=== PATIENT | female | born 1980 | race Caucasian/White ===

== ENCOUNTER 2022-06-09 11:36 | Inpatient (IN) | payer OTHER ==
[~2022-06-09] VITALS: Ht 157.5 cm; Wt 85.3 kg
[2022-06-09] MEDS ORDERED: TERBUTALINE SULFATE 1 MG/ML VIAL SUBCUT PRN (12:00)
[2022-06-09 12:30] LABS: BARBITURATE, URINE NEGATIVE (NEG <=200); BENZODIAZEPINE, URINE NEGATIVE (NEG <=150); CANNABINOID, URINE POSITIVE (NEG <=50); COCAINE, URINE NEGATIVE (NEG <=150); METHAMPHETAMINES SCREEN,URINE POSITIVE (NEG <=500); OPIATE, URINE NEGATIVE (NEG <=100); PHENCYCLIDINE SCREEN,URINE NEGATIVE (NEG <=25); UR TRICYCLIC ANTIDEPRESSANTS NEGATIVE (NEG <=300); URINE AMPHETAMINE POSITIVE (NEG <=500); URINE METHADONE NEGATIVE (NEG <=200); URINE OXYCODONE SCREEN NEGATIVE (NEG <=100); URINE PROPOXYPHENE SCREEN NEGATIVE (NEG <=300)
[2022-06-09 12:37] LABS: BILIRUBIN,URINE NEGATIVE (NEGATIVE); COLOR,URINE YELLOW (YELLOW); GLUCOSE,URINE NEGATIVE (NEGATIVE); KETONES,URINE NEGATIVE (NEGATIVE); LEUKOCYTE ESTERASE ,URINE NEGATIVE (NEGATIVE); NITRITE, URINE NEGATIVE (NEGATIVE); PH,URINE 6.5 (5.0-8.0); PROTEIN URINE 3+ (NEGATIVE); UROBILINOGEN,URINE 0.2 (0.2-1.0)
[2022-06-09 12:41] LABS: BLOOD, URINE TRACE (NEGATIVE)
[2022-06-09 12:45] LABS: BACTERIA,URINE MANY /HPF (None Seen); CLARITY/URINE HAZY (CLEAR); MUCUS,URINE 1+ /LPF (None Seen)
[2022-06-09] MEDS ORDERED: NALBUPHINE HCL 10 MG/ML AMP IVP PRN (13:15)
[2022-06-09] MEDS ORDERED: TERBUTALINE SULFATE 1 MG/ML VIAL SUBCUT ONE (13:15)
[2022-06-09] MEDS ORDERED: OXYTOCIN/0.9 % SODIUM CHLORIDE 1,000 ML IV SCH (13:15)
[2022-06-09] MEDS ORDERED: LR 1,000 ML IV ONE (13:15)
[2022-06-09 13:34] LABS: BASOPHILS % (AUTO) 0.4 % (0.0-2.0); EOSINOPHILS # (AUTO) 0.1 K/uL (0.0-0.4); EOSINOPHILS % (AUTO) 0.8 % (0.0-4.0); HEMATOCRIT 39.7 % (36-48); HEMOGLOBIN 14.1 g/dL (12.0-16.0); LYMPHOCYTES # (AUTO) 1.6 K/uL (1.0-5.5); LYMPHOCYTES % (AUTO) 15.4 % (20.5-51.5); MEAN CORPUSCULAR HEMOGLOBIN 31 pg (27-31); MEAN CORPUSCULAR HGB CONC 36 % (32-36); MEAN CORPUSCULAR VOLUME 88 fL (79.0-98.0); MONOCYTES # (AUTO) 0.7 K/uL (0.0-1.0); NEUTROPHILS # (AUTO) 7.7 K/uL (1.8-7.7); NEUTROPHILS % (AUTO) 76.4 % (40.0-70.0); PLATELET COUNT (AUTO) 120 K/uL (130-430); RED CELL DISTRIBUTION WIDTH 13.1 % (9.0-15.0); WHITE BLOOD COUNT (AUTO) 10.1 K/uL (4.8-10.8)
[2022-06-09 13:52] LABS: CALCIUM 8.3 mg/dL (8.4-11.0); CREATININE 0.56 mg/dL (0.55-1.30); POTASSIUM 4.1 mmol/L (3.5-5.1)
[2022-06-09 13:57] LABS: ALBUMIN 1.9 g/dL (3.4-4.8); TOTAL BILIRUBIN 0.3 mg/dL (0.0-1.0)
[2022-06-09 14:17] LABS: INR 0.8 (0.8-1.2); PROTHROMBIN TIME 8.9 SECS (9.5-12.5)
[2022-06-09] MEDS: hydrALAZINE HCL 20 MG/ML VIAL IVP PRN ×2 (15:17→15:55)
[2022-06-09] MEDS ORDERED: hydrALAZINE HCL 25 MG TABLET PO ONE (16:15)
[2022-06-09 17:20] VITALS: BP_SYST 193
[2022-06-09] MEDS ORDERED: LABETALOL HCL 20 MG/4 ML CARTRIDGE IVP ONE (18:45)
[2022-06-09] MEDS ORDERED: LABETALOL 100 MG/ 20ML VIAL ONE (19:10)
[2022-06-09] MEDS ORDERED: fentaNYL CITRATE/PF 100 MCG/2 ML AMP ONE (21:46)
[2022-06-09] MEDS ORDERED: ROPIVACAINE HCL/PF 0.2% 200 ML ONE (21:46)
[2022-06-09] MEDS ORDERED: LR 500 ML IV ONE (22:45)
[2022-06-09] MEDS ORDERED: FENT2mCg/mL-ROPIVA0.2%/NS EPID 200 ML EP SCH (22:45)
[2022-06-10 00:27] LABS: BILIRUBIN,URINE NEGATIVE (NEGATIVE); BLOOD, URINE NEGATIVE (NEGATIVE); CLARITY/URINE CLEAR (CLEAR); COLOR,URINE BROWN (YELLOW); GLUCOSE,URINE NEGATIVE (NEGATIVE); KETONES,URINE 3+ (NEGATIVE); LEUKOCYTE ESTERASE ,URINE NEGATIVE (NEGATIVE); NITRITE, URINE NEGATIVE (NEGATIVE); PH,URINE 6.5 (5.0-8.0); PROTEIN URINE 3+ (NEGATIVE); UROBILINOGEN,URINE 0.2 (0.2-1.0)
[2022-06-10 00:38] LABS: CANNABINOID, URINE POSITIVE (NEG <=50)
[2022-06-10 00:39] LABS: BARBITURATE, URINE NEGATIVE (NEG <=200); BENZODIAZEPINE, URINE NEGATIVE (NEG <=150); COCAINE, URINE NEGATIVE (NEG <=150); METHAMPHETAMINES SCREEN,URINE POSITIVE (NEG <=500); OPIATE, URINE NEGATIVE (NEG <=100); PHENCYCLIDINE SCREEN,URINE NEGATIVE (NEG <=25); UR TRICYCLIC ANTIDEPRESSANTS NEGATIVE (NEG <=300); URINE METHADONE NEGATIVE (NEG <=200); URINE OXYCODONE SCREEN NEGATIVE (NEG <=100); URINE PROPOXYPHENE SCREEN NEGATIVE (NEG <=300)
[2022-06-10 01:00] LABS: URINE AMPHETAMINE POSITIVE (NEG <=500)
[2022-06-10] MEDS ORDERED: OXYTOCIN/0.9 % SODIUM CHLORIDE 1,000 ML IV SCH ×2 (06:00→21:00)
[2022-06-10] MEDS: ONDANSETRON HCL 4 MG/2 ML VIAL IVP PRN ×2 (06:16→08:32)
[2022-06-10] MEDS: LR 1,000 ML IV SCH ×3 (06:18→13:47)
[2022-06-10] MEDS ORDERED: LABETALOL 100 MG/ 20ML VIAL IVP ONE (14:30)
[2022-06-10] MEDS ORDERED: CEFAZOLIN 2 GM IVPB PREMIX 50 ML IV ONE (20:00)
[2022-06-10] MEDS ORDERED: BUPIVACAINE /PF 0.5% 30 ML VIAL ONE (20:21)
[2022-06-10] MEDS ORDERED: MORPHINE SULFATE 10 MG/ML VIAL ONE (20:45)
[2022-06-10] MEDS ORDERED: LR 1,000 ML IV.SOLN IV ONE (20:45)
[2022-06-10] MEDS ORDERED: NS IRRIG SOLN 1000 ML IR ONE (20:45)
[2022-06-10] MEDS ORDERED: ONDANSETRON HCL 4 MG/2 ML VIAL ONE (20:45)
[2022-06-10] MEDS ORDERED: LANOLIN 7 GM OINT. TP PRN (21:00)
[2022-06-10] MEDS ORDERED: OXYCODONE/ACETAMINOPHEN 5-325 TABLET PO PRN (21:00)
[2022-06-10] MEDS ORDERED: SENNOSIDES/DOCUSATE SODIUM 1 TAB TABLET(SENOKOT-S) PO SCH (21:00)
[2022-06-10] MEDS ORDERED: NALBUPHINE HCL 10 MG/ML AMP IVP PRN (21:00)
[2022-06-10] MEDS ORDERED: fentaNYL CITRATE/PF 100 MCG/2 ML AMP IVP PRN ×2 (21:00)
[2022-06-10] MEDS ORDERED: ONDANSETRON HCL 4 MG/2 ML VIAL IVP PRN ×2 (21:00)
[2022-06-10] MEDS ORDERED: METOCLOPRAMIDE HCL 10 MG/2 ML VIAL IVP PRN (21:00)
[2022-06-10] MEDS ORDERED: DIPHTH,PERTUSS(ACELL),TET VAC 0.5 ML VIAL (Tdap) I.M. PRN (21:00)
[2022-06-10] MEDS ORDERED: TEMAZEPAM 15 MG CAPSULE PO PRN (21:00)
[2022-06-10] MEDS ORDERED: MEASLES,MUMPS&RUBELLA VACC/PF 12500 UNIT/0.5 ML VIAL SUBQ PRN (21:00)
[2022-06-10] MEDS ORDERED: ANUSOL 1 EA SUPP.RECT (PREPARATION H) RC PRN (21:00)
[2022-06-10] MEDS ORDERED: MORPHINE SULFATE 10MG/10ML PF AMP EP SCH (21:00)
[2022-06-10] MEDS ORDERED: NALOXONE HCL 0.4 MG/ML AMP (NARCAN) IVP PRN ×3 (21:00)
[2022-06-10] MEDS ORDERED: LR 1,000 ML IV SCH (21:00)
[2022-06-10] MEDS ORDERED: RHO(D) IMMUNE GLOBULIN/MALTOSE 1500 UNITS/1.3 ML (WINHRO) IM PRN (21:00)
[2022-06-10] MEDS ORDERED: DIPHENHYDRAMINE INJ 50 MG/ML VIAL IVP PRN (21:00)
[2022-06-10] MEDS ORDERED: HYDROcodone/ACETAMIN 5-325 MG TAB (NORCO/ VICODIN) PO PRN (21:00)
[2022-06-10] MEDS ORDERED: BISACODYL 10 MG/SUPPOSITORY RC PRN (21:00)
[2022-06-10] MEDS ORDERED: OXYCODONE/ACETAMINOPHEN *10*mg/325 mg TABLET PO PRN (21:00)
[2022-06-10 21:30] VITALS: BP_SYST 134
[2022-06-10] MEDS ORDERED: OXYTOCIN 10 UNIT/ML VIAL ONE (21:37)
[2022-06-11] MEDS: KETOROLAC TROMETHAMINE 60 MG/2 ML VIAL IM PRN ×2 (00:08→18:03)
[2022-06-11] MEDS: CEFAZOLIN 1 GM IVPB PREMIX 50 ML IV SCH ×3 (02:36→14:20)
[2022-06-11] MEDS ORDERED: ACETAMINOPHEN I.V. 1000 MG 100 ML IV ONE (02:48)
[2022-06-11] MEDS ORDERED: KETOROLAC TROMETHAMINE 30 MG VIAL IVP SCH (06:00)
[2022-06-11 07:09] LABS: BASOPHILS # (AUTO) 0.1 K/uL (0.0-0.2); BASOPHILS % (AUTO) 0.6 % (0.0-2.0); EOSINOPHILS # (AUTO) 0.1 K/uL (0.0-0.4); EOSINOPHILS % (AUTO) 0.7 % (0.0-4.0); HEMATOCRIT 32.3 % (36-48); HEMOGLOBIN 11.6 g/dL (12.0-16.0); LYMPHOCYTES # (AUTO) 1.5 K/uL (1.0-5.5); LYMPHOCYTES % (AUTO) 14.1 % (20.5-51.5); MEAN CORPUSCULAR HEMOGLOBIN 32 pg (27-31); MEAN CORPUSCULAR HGB CONC 36 % (32-36); MEAN CORPUSCULAR VOLUME 89 fL (79.0-98.0); MONOCYTES # (AUTO) 0.7 K/uL (0.0-1.0); MONOCYTES % (AUTO) 6.5 % (1.7-9.3); NEUTROPHILS # (AUTO) 8.2 K/uL (1.8-7.7); NEUTROPHILS % (AUTO) 78.1 % (40.0-70.0); PLATELET COUNT (AUTO) 132 K/uL (130-430); RED BLOOD CELL COUNT(AUTO) 3.63 MIL/uL (4.2-6.2); RED CELL DISTRIBUTION WIDTH 13.3 % (9.0-15.0); WHITE BLOOD COUNT (AUTO) 10.5 K/uL (4.8-10.8)
[2022-06-11] MEDS: ACETAMINOPHEN I.V. 1000 MG 100 ML IV SCH ×2 (07:54→14:05)
[2022-06-11] MEDS: ONDANSETRON HCL 4 MG/2 ML VIAL IVP PRN (15:00)
[2022-06-11] MEDS: DOCUSATE SODIUM 100 MG CAPSULE PO SCH ×2 (18:00→18:02)
[2022-06-11] MEDS: SIMETHICONE 80 MG TAB.CHEW PO PRN (18:01)
[2022-06-11] MEDS ORDERED: FUROSEMIDE 40 MG/4 ML VIAL IVP ONE (18:45)
[2022-06-11] MEDS ORDERED: FUROSEMIDE 20 MG/2 ML VIAL ONE (19:53)
[2022-06-12] MEDS: IBUPROFEN 600 MG TABLET PO SCH ×4 (00:02→17:49)
[2022-06-12] MEDS: DOCUSATE SODIUM 100 MG CAPSULE PO SCH ×2 (09:42→20:16)
[2022-06-12] MEDS: SIMETHICONE 80 MG TAB.CHEW PO PRN ×2 (09:42→17:49)
[2022-06-13] MEDS: SIMETHICONE 80 MG TAB.CHEW PO PRN ×3 (00:01→09:42)
[2022-06-13] MEDS: IBUPROFEN 600 MG TABLET PO SCH ×2 (00:01→11:41)
[2022-06-13] MEDS: DOCUSATE SODIUM 100 MG CAPSULE PO SCH (09:42)
[2022-06-14 11:57] LABS: FTA-Ab (T PALLIDUM) Reactive (Non Reactive)
== END 2022-06-13 12:46 | disposition home or self-care (01) | DRG 787 ==
LOC: OBSVTOIN 11:36 → SPU 11:36
PROVIDERS: ADMIT Specialist; ATTEND Specialist
PROC: 10D00Z1 Extraction of Products of Conception, Low, Open Approach (ICD-10-PCS; principal; 2022-06-10 20:50)
DX: O13.4 Gestational [pregnancy-induced] hypertension without significant proteinuria, complicating childbirth (principal); O41.03X0 Oligohydramnios, third trimester, not applicable or unspecified; O62.2 Other uterine inertia; O76 Abnormality in fetal heart rate and rhythm complicating labor and delivery; O12.14 Gestational proteinuria, complicating childbirth; Z20.822 Contact with and (suspected) exposure to COVID-19; Z37.0 Single live birth; Z3A.37 37 weeks gestation of pregnancy
CPT/HCPCS: 36415; 80053; 80307; 81000; 81002; 81003; 85025; 85384; 85610-TC; 85730-TC; 86592; 86780; 86886; 86900; 86901; 94760; J0131; J0360; J0690; J1885; J1940; J2270; J2300; J2405; J2590; J3010; J3490; J7120

== ENCOUNTER 2022-06-15 09:33 | Inpatient (IN) | payer MEDICAID, OTHER ==
[~2022-06-15] VITALS: Ht 157.5 cm; Wt 85.3 kg
[2022-06-15 09:33] VITALS: BP_SYST 182
--- NOTE | 2022-06-15 09:33 | NUR ---
BROUGHT BACK TO BED #1 VIA WHEELCHAIR, PLACED IN BED #1 AND TRIAGED. REPORT GIVEN TO ROYAL
--- NOTE | 2022-06-15 09:33 | NUR ---
RECEIVED PT FROM ABHIJIT FARIAS. PT HAS SOB AND STATES SHE FEELS LIKE HER B/P IS HIGH AND SHE HAS ANXIETY. PT IS S/P < ONE WEEK, SURCIAL SITE CDI, NO S/S OF INFECTION NOTED. PT B/P 18R/98 (128). PT HAS BLE NONPITTING EDEMA, DISTAL PULSES NORMAL. SIDERAILS UP X2.
[2022-06-15] MEDS ORDERED: LORazepam 2 MG/ML VIAL IVP ONE (10:00)
[2022-06-15 10:18] LABS: MEAN CORPUSCULAR HEMOGLOBIN 32 pg (27-31); MEAN CORPUSCULAR HGB CONC 34 % (32-36); MEAN CORPUSCULAR VOLUME 93 fL (79.0-98.0); PLATELET COUNT (AUTO) 226 K/uL (130-430); RED CELL DISTRIBUTION WIDTH 13.6 % (9.0-15.0); WHITE BLOOD COUNT (AUTO) 13.1 K/uL (4.8-10.8)
[2022-06-15] MEDS ORDERED: IOHEXOL 350 mgI/mL, 150 ML INFUS..BTL IV ONE (10:23)
[2022-06-15 10:27] LABS: ANION GAP 5 (5-15); CALCIUM 7.9 mg/dL (8.4-11.0); CHLORIDE 105 mmol/L (98-107); CREATININE 0.63 mg/dL (0.55-1.30); GLUCOSE 99 mg/dL (70-99); POTASSIUM 4.2 mmol/L (3.5-5.1); UREA NITROGEN, BLOOD 13 mg/dL (8-21)
[2022-06-15 10:38] LABS: ALANINE AMINOTRANSFERASE 29 U/L (12-78); ALBUMIN 1.8 g/dL (3.4-4.8); ASPARTATE AMINOTRANSFERASE 57 U/L (10-37); TOTAL BILIRUBIN 1.4 mg/dL (0.0-1.0)
[2022-06-15 10:42] LABS: GFR AFRICAN AMERICAN 134 mL/min (>90)
--- NOTE | 2022-06-15 10:43 | NUR ---
CONSENT OBTAINED FOR C/T CONTRAST, ATIVVAN IVP GIVEN.
--- NOTE | 2022-06-15 10:44 | NUR ---
LAB REPORTS HGB 5.5. PT'S HGB ONE WEEK AGO WAS > 11. REQUESTED REDRAW, LAB AT BEDSIDE FOR REDRAW AT THIS TIME.
[2022-06-15 10:53] LABS: RED BLOOD CELL COUNT(AUTO) 1.76 MIL/uL (4.2-6.2)
[2022-06-15 10:54] LABS: HEMATOCRIT 16.3 % (36-48); HEMOGLOBIN 5.6 g/dL (12.0-16.0)
--- NOTE | 2022-06-15 11:54 | NUR ---
PT TAKEN FOR CT SCAN.
--- NOTE | 2022-06-15 12:00 | NUR ---
DR. COON MADE AWARE PT'S SBP STILL TRENDING IN THE 107S. NNOS.
[2022-06-15 12:54] LABS: BILIRUBIN,URINE NEGATIVE (NEGATIVE); BLOOD, URINE 3+ (NEGATIVE); CLARITY/URINE CLOUDY (CLEAR); COLOR,URINE YELLOW (YELLOW); GLUCOSE,URINE NEGATIVE (NEGATIVE); KETONES,URINE TRACE (NEGATIVE); LEUKOCYTE ESTERASE ,URINE NEGATIVE (NEGATIVE); NITRITE, URINE NEGATIVE (NEGATIVE); PROTEIN URINE 2+ (NEGATIVE)
[2022-06-15] MEDS ORDERED: fentaNYL CITRATE/PF 100 MCG/2 ML AMP IVP ONE ×2 (13:00→15:45)
[2022-06-15 13:05] LABS: MEAN CORPUSCULAR HEMOGLOBIN 32 pg (27-31); MEAN CORPUSCULAR HGB CONC 34 % (32-36); MEAN CORPUSCULAR VOLUME 94 fL (79.0-98.0); PLATELET COUNT (AUTO) 231 K/uL (130-430); RED CELL DISTRIBUTION WIDTH 13.5 % (9.0-15.0); WHITE BLOOD COUNT (AUTO) 14.4 K/uL (4.8-10.8)
[2022-06-15 13:06] LABS: BACTERIA,URINE RARE /HPF (None Seen); WBC,URINE NONE SEEN /HPF (0-3)
[2022-06-15 13:10] LABS: RED BLOOD CELL COUNT(AUTO) 1.93 MIL/uL (4.2-6.2)
[2022-06-15 13:12] LABS: HEMATOCRIT 18.2 % (36-48); HEMOGLOBIN 6.1 g/dL (12.0-16.0)
[2022-06-15] MEDS ORDERED: NACL 0.9% 1,000 ML IV ONE (13:15)
[2022-06-15 13:16] LABS: BARBITURATE, URINE NEGATIVE (NEG <=200); BENZODIAZEPINE, URINE POSITIVE (NEG <=150); CANNABINOID, URINE POSITIVE (NEG <=50); COCAINE, URINE NEGATIVE (NEG <=150); METHAMPHETAMINES SCREEN,URINE NEGATIVE (NEG <=500); OPIATE, URINE NEGATIVE (NEG <=100); PHENCYCLIDINE SCREEN,URINE NEGATIVE (NEG <=25); UR TRICYCLIC ANTIDEPRESSANTS NEGATIVE (NEG <=300); URINE AMPHETAMINE NEGATIVE (NEG <=500); URINE METHADONE NEGATIVE (NEG <=200); URINE OXYCODONE SCREEN NEGATIVE (NEG <=100); URINE PROPOXYPHENE SCREEN NEGATIVE (NEG <=300)
--- NOTE | 2022-06-15 13:38 | NUR ---
SCHEDULED PAIN MED GIVEN.
--- NOTE | 2022-06-15 14:21 | NUR ---
DR PETERSON HERE TO EVALUATE PT
[2022-06-15] MEDS ORDERED: OXYCODONE/ACETAMINOPHEN 5-325 TABLET PO PRN (14:30)
[2022-06-15] MEDS ORDERED: D5/0.45 NS 1,000 ML IV SCH (14:30)
--- NOTE | 2022-06-15 15:49 | NUR ---
DR. NEVILLE AND DR PETERSON PAGED REGARDING PT'S SBP IN THE 180S. DR. CHAVIRA GAVE PT FENTANYL IVP, MED GIVEN PT REPOSITIONED FOR COMFORT.
[2022-06-15] MEDS ORDERED: AMPICILLIN SODIUM 1 GM in NS 50 ML IV SCH (16:00)
--- NOTE | 2022-06-15 16:42 | NUR ---
FOLLOWED UP WITH DR. PETERSON REGARDING PT'S HIGH SBP IN THE 170S-180S. DR. PETERSON STATED THAT DUE TO THE PT'S SUBSTANCE ABUSE AND ANXIETY, PT'S BLOOD PRESSURE IS LABILE AND HE DOES NOT WANT TO PRESCRIBE B/P MEDS BECAUSE PT'S B/P DROPS EASILY. PT MAY HAVE REG DIET.
--- NOTE | 2022-06-15 17:07 | NUR ---
BELONGING LIST COMPLETED, MEDS RECONCILED.
--- NOTE | 2022-06-15 17:13 | NUR ---
PT HAS NO HOME MEDICATIONS THAT SHE TAKES, PT BELONGING COMPLETED.
[2022-06-15] MEDS ORDERED: AMPICILLIN SODIUM 1 GM VIAL ONE ×2 (17:42→22:57)
--- NOTE | 2022-06-15 17:55 | NUR ---
CONSULTATION PAGED/CALLED Reason for Consultation: [] HOSPITALIST FOR ANENIA/PULM EDEMA Person Who was Notified: [] SUMA Consulting Physician: [] DR NUNEZ/IRAM LAWSON Auto Emissions Technician Specialty: [] OBGYN Ordering Physician: [] DR PETERSON
--- NOTE | 2022-06-15 17:58 | NUR ---
[facility], SPOKE TO EUGENE AND GAVE THE INFO.
[2022-06-15] MEDS ORDERED: AMPICILLIN SODIUM 1 GM VIAL IV SCH (18:00)
--- NOTE | 2022-06-15 18:20 | NUR ---
COVID SPECIMEN SENT TO LAB.
[2022-06-15] MEDS: AMPICILLIN SODIUM 1 GM in NS 50 ML IV SCH ×2 (18:36→23:41)
--- NOTE | 2022-06-15 19:25 | NUR ---
PT ENDORSED TO ABHIJIT RANKIN. ALL QUESTIONS AND CONCERNS ADDRESSED. MASSIEL MADE AWARE PT'S 2 UNITS PRBCS WILL NOT BE DELIVERED TO LAB UNTIL AFTER 1999.
[2022-06-15 19:38] LABS: BAND % (MANUAL) 10 % (0-6); BASOPHILS % (MANUAL) 0 % (0-2); EOSINOPHILS % (MANUAL) 0 % (0-7); LYMPHOCYTES % (MANUAL) 11 % (20-46); METAMYELOCYTES % 3 % (0-0); MONOCYTES % (MANUAL) 0 % (0-11)
--- NOTE | 2022-06-15 20:28 | NUR ---
Report given to Jess LACEY, all questions answered. Pt with марина HOLLAND. Blood consent signed, pending blood bank to release PRBC.
--- NOTE | 2022-06-15 20:35 | NUR ---
ADMIT NOTE Received pt from ER with a diagnosis of Hypertention, Hematoma. Admission process initiated. patient oriented to pain management, safety and call light-teach back done.
[2022-06-15 20:37] VITALS: BP_SYST 166
[2022-06-15] MEDS ORDERED: metroNIDAZOLE 500 mg/NS 100 ML IV SCH (22:00)
--- NOTE | 2022-06-15 22:00 | NUR ---
Initial RN notes Pt asleep, easily arousable. No s/s distress noted. BP elevated will page . Pt denies any sob or chest pain. Pt signed blood consent in chart. IVF infusing R. AC at ordered rate. Lower abd incision with steristrips, no bleeding or drainage noted, bruising noted. Call light within reach. To monitor.
--- NOTE | 2022-06-15 22:20 | NUR ---
Elevated BP/Paged Paged and spoke with Dr. Jackson re pt's elevated BP. Orders received for Hydralazine 10mg IVP Q2H PRN for SBP >160.
[2022-06-15] MEDS ORDERED: ACETAMINOPHEN 650 MG/20.3 ML UDC PO PRN (23:00)
[2022-06-15] MEDS ORDERED: metroNIDAZOLE 500 mg/NS 200 ML IV ONE (23:02)
--- NOTE | 2022-06-15 23:15 | NUR ---
BT INITIATION: Consent signed per pt agreeing to administration of blood. Blood has been type and crossmatched. Blood sent from blood bank. Information on unit of blood checked against patient wristband at bedside by two nurses. All information matches. Patient or responsible alliance party informed of potential complications associated with blood transfusion. Informed of possible transfusion reaction symptoms. Aware of need to notify nurse at once of itching, shortness of breath, flushing, feeling of impending doom, or other symptoms not previously present. Vital signs taken within 5 minutes prior to initiation of transfusion. RN will remain with patient for first 15 minutes of transfusion at which time vital signs will be re-assessed.
[2022-06-15] MEDS: hydrALAZINE HCL 20 MG/ML VIAL IVP PRN (23:18)
--- NOTE | 2022-06-15 23:22 | NUR ---
CONSULTATION CALLED FOR DR. JAMIN LAWSON MORTGAGE PROCESSOR FOR CONSULT OF ANEMIA PULM EDEMA ORDER BY DR. PETERSON SPOKE WITH JASE
--- NOTE | 2022-06-15 23:30 | NUR ---
IV INSERTION: 2nd IV site started on L wrist 20G for IV antibiotics. Successful after 1 attempt. IV antibiotics administered as ordered. Will observe for any signs of infiltration.
[2022-06-15] MEDS: OXYCODONE/ACETAMINOPHEN 5-325 TABLET PO PRN (23:39)
[2022-06-15] MEDS: metroNIDAZOLE 500 mg/NS 100 ML IV SCH (23:47)
[2022-06-16 00:03] VITALS: BP_SYST 158
[2022-06-16] MEDS: hydrALAZINE HCL 20 MG/ML VIAL IVP PRN ×2 (02:40→06:08)
--- NOTE | 2022-06-16 02:40 | NUR ---
Apresoline 10mg IVP administered for elevated BP. Will continue to monitor.
--- NOTE | 2022-06-16 03:40 | NUR ---
Assisted to Bathroom Pt alert, awake, assisted pt to the bathroom, pt steady gait. Pt voided. Pt medicated with Percocet 1 tab for c/o headache and upper back pain. Blood transfusion currently infusing R. AC 20G. Call light within reach. Bed low, locked, siderails up. To monitor.
[2022-06-16] MEDS: OXYCODONE/ACETAMINOPHEN 5-325 TABLET PO PRN ×3 (03:43→20:34)
[2022-06-16] MEDS: AMPICILLIN SODIUM 1 GM in NS 50 ML IV SCH ×4 (05:21→23:16)
--- NOTE | 2022-06-16 05:50 | NUR ---
Closing notes/2nd unit PRBC completed. No blood transfusion reaction noted. Pt medicated with Hydralazine IVP 10mg for elevated BP 174/101. pt is sleeping. To endorse to AM nurse.
[2022-06-16] MEDS: metroNIDAZOLE 500 mg/NS 100 ML IV SCH ×3 (06:05→21:42)
--- NOTE | 2022-06-16 06:30 | NUR ---
geophysical data technician at station and informed blood transfusion just finished 30mins ago and to come back in an hour.
[2022-06-16 08:00] VITALS: BP_SYST 162
[2022-06-16 08:01] LABS: BASOPHILS % (AUTO) 0.3 % (0.0-2.0); EOSINOPHILS # (AUTO) 0.1 K/uL (0.0-0.4); EOSINOPHILS % (AUTO) 0.6 % (0.0-4.0); LYMPHOCYTES # (AUTO) 1.1 K/uL (1.0-5.5); LYMPHOCYTES % (AUTO) 6.2 % (20.5-51.5); MEAN CORPUSCULAR HEMOGLOBIN 31 pg (27-31); MEAN CORPUSCULAR HGB CONC 35 % (32-36); MEAN CORPUSCULAR VOLUME 89 fL (79.0-98.0); MONOCYTES # (AUTO) 0.9 K/uL (0.0-1.0); MONOCYTES % (AUTO) 5.2 % (1.7-9.3); NEUTROPHILS # (AUTO) 14.9 K/uL (1.8-7.7); NEUTROPHILS % (AUTO) 87.7 % (40.0-70.0); PLATELET COUNT (AUTO) 242 K/uL (130-430); RED CELL DISTRIBUTION WIDTH 15.4 % (9.0-15.0)
[2022-06-16 08:15] LABS: CALCIUM 7.5 mg/dL (8.4-11.0); CREATININE 0.58 mg/dL (0.55-1.30); POTASSIUM 3.6 mmol/L (3.5-5.1)
[2022-06-16 08:21] LABS: ALBUMIN 1.8 g/dL (3.4-4.8); TOTAL BILIRUBIN 1.6 mg/dL (0.0-1.0)
--- NOTE | 2022-06-16 10:37 | NUR ---
CONSULTATION PAGED REASON FOR CONSULTATION:CHF WAS CONSULT CALLED?Y -PERSON WHO WAS NOTIFIED:JEFFRY MACKENZIE CONSULTING PHYSICIAN:JEFFRY MACKENZIE WIRE TECHNICIAN SPECIALTY:CARDIO WIRE TECHNICIAN PHONE NUMBER:[phone] REQUESTING PHYSICIAN:ARIELLA VOSS
[2022-06-16] MEDS ORDERED: FUROSEMIDE 20 MG/2 ML VIAL IVP ONE (10:45)
[2022-06-16 12:00] VITALS: BP_SYST 145
[2022-06-16] MEDS ORDERED: CARVEDILOL 12.5 MG TABLET (COREG) PO ONE (12:00)
[2022-06-16] MEDS ORDERED: lisinopriL 20 MG TABLET PO ONE (12:00)
[2022-06-16 16:00] VITALS: BP_SYST 148
--- NOTE | 2022-06-16 19:00 | NUR ---
opening receive pt from day nurse pt in bed alert, awake and stable at this time. pt has family at bedside for support. vitals taken and within normal limits. b/p slightly elevated. however, pt stated her b/p does run high. skin warm to touch and clean and dry. no c/o pain or distress noted at this time. encourage pt to call if needs assistance. call light in reach and place bed to lowest position.
[2022-06-16] MEDS: FUROSEMIDE 20 MG/2 ML VIAL IVP SCH (20:35)
[2022-06-16] MEDS: LORazepam 1 MG TABLET PO PRN (20:35)
[2022-06-16] MEDS: CARVEDILOL 12.5 MG TABLET (COREG) PO SCH (20:35)
[2022-06-16 21:21] VITALS: BP_SYST 148
[2022-06-17] MEDS: AMPICILLIN SODIUM 1 GM in NS 50 ML IV SCH ×4 (04:44→23:53)
[2022-06-17] MEDS: metroNIDAZOLE 500 mg/NS 100 ML IV SCH ×3 (05:17→21:17)
--- NOTE | 2022-06-17 07:21 | NUR ---
report giving to day nurse mamadou to continue care. pt in bed alert, awake and stable at this time while connected to breast pump.
[2022-06-17 07:28] LABS: BASOPHILS # (AUTO) 0.1 K/uL (0.0-0.2); BASOPHILS % (AUTO) 0.7 % (0.0-2.0); EOSINOPHILS # (AUTO) 0.1 K/uL (0.0-0.4); EOSINOPHILS % (AUTO) 0.8 % (0.0-4.0); HEMATOCRIT 26.2 % (36-48); HEMOGLOBIN 9.2 g/dL (12.0-16.0); LYMPHOCYTES # (AUTO) 0.8 K/uL (1.0-5.5); LYMPHOCYTES % (AUTO) 5.9 % (20.5-51.5); MEAN CORPUSCULAR HEMOGLOBIN 31 pg (27-31); MEAN CORPUSCULAR HGB CONC 35 % (32-36); MEAN CORPUSCULAR VOLUME 90 fL (79.0-98.0); MONOCYTES # (AUTO) 0.7 K/uL (0.0-1.0); MONOCYTES % (AUTO) 5.2 % (1.7-9.3); NEUTROPHILS % (AUTO) 87.4 % (40.0-70.0); PLATELET COUNT (AUTO) 215 K/uL (130-430); RED BLOOD CELL COUNT(AUTO) 2.93 MIL/uL (4.2-6.2); RED CELL DISTRIBUTION WIDTH 15.6 % (9.0-15.0); WHITE BLOOD COUNT (AUTO) 13.7 K/uL (4.8-10.8)
[2022-06-17 08:00] VITALS: BP_SYST 181
--- NOTE | 2022-06-17 08:00 | NUR ---
REcd pt a/ox4, iv site patent w/o signs on infiltration. Assisted to shower, pt feels much better. Assisted pt to walk around the nursing station, pt tolerated well. Medicated with percocet per md order. All needs anticipated and met. Encouraged pt to ambulate and increase food/ fluid intake. Continue to monitor.
[2022-06-17] MEDS: FUROSEMIDE 20 MG/2 ML VIAL IVP SCH (10:22)
[2022-06-17] MEDS: lisinopriL 20 MG TABLET PO SCH (10:23)
[2022-06-17] MEDS: OXYCODONE/ACETAMINOPHEN 5-325 TABLET PO PRN ×2 (10:23→17:36)
[2022-06-17] MEDS: CARVEDILOL 12.5 MG TABLET (COREG) PO SCH ×2 (10:23→21:12)
[2022-06-17 12:00] VITALS: BP_SYST 161
[2022-06-17] MEDS ORDERED: D5/0.45 NS 1,000 ML IV SCH (14:30)
--- NOTE | 2022-06-17 14:55 | NUR ---
MRSA of nares collected and sent to the lab. pt tolerated well.
[2022-06-17 16:00] VITALS: BP_SYST 150
--- NOTE | 2022-06-17 16:23 | NUR ---
Dietitian Recommendations * Cardiac diet, FR 1500 ml/day * Encourage increase PO intakes * RD provided heart-healthy and sobriety MNT LP, MS, RD Please refer to Nutrition Assessment for details. Addendum: 06/17/22 at [address] Amended: Links added.
--- NOTE | 2022-06-17 17:16 | NUR ---
Pt with high blood pressure, medicated with hydralazine prn per md order with good results.
--- NOTE | 2022-06-17 18:15 | NUR ---
Pt c/o incisional pain, medicated with percocet per md order. Pt eating dinner w/o difficulty.
[2022-06-17 20:10] VITALS: BP_SYST 178
[2022-06-17] MEDS: LORazepam 1 MG TABLET PO PRN (21:12)
[2022-06-17] MEDS: hydrALAZINE HCL 20 MG/ML VIAL IVP PRN (21:13)
[2022-06-17] MEDS: FUROSEMIDE 40 MG TABLET PO SCH (21:17)
--- NOTE | 2022-06-17 22:00 | NUR ---
THIS RN TO SPEAK WITH CHARGE NURSE IN REGARDS TO PT BREAST PUMPING USING FACILITY EQUIPMENT. NOTE RN FROM LABOR AND DELIVERY TO SPEAK WITH PATIENT AND EDUCATE HER ON HOW TO USE THE PUMP- PATIENT VOICED SHE WANTED TO WAIT AND GIVE IT A TRY TOMORROW. CHARGE NURSE AWARE- WILL REPORT TO ONCOMING NURSE.
[2022-06-18 00:07] VITALS: BP_SYST 142
[2022-06-18] MEDS: metroNIDAZOLE 500 mg/NS 100 ML IV SCH (05:13)
[2022-06-18] MEDS: AMPICILLIN SODIUM 1 GM in NS 50 ML IV SCH ×2 (05:14→11:10)
[2022-06-18 08:00] VITALS: BP_SYST 159
[2022-06-18] MEDS: CARVEDILOL 12.5 MG TABLET (COREG) PO SCH (10:00)
[2022-06-18] MEDS: FUROSEMIDE 40 MG TABLET PO SCH (10:00)
[2022-06-18] MEDS: lisinopriL 20 MG TABLET PO SCH (10:01)
--- NOTE | 2022-06-18 11:00 | NUR ---
Dr Gomes (web press operator) at the bedside aware of pt's bp trending upward. new orders noted and carried out. Will continue to monitor pt closely.
[2022-06-18 12:00] VITALS: BP_SYST 149
[2022-06-18 12:19] VITALS: BP_SYST 150
[2022-06-18] MEDS ORDERED: CARV25TA55 PO (12:49)
[2022-06-18] MEDS ORDERED: FURO-149 PO (12:50)
[2022-06-18] MEDS ORDERED: AZIT500T3 PO (12:51)
[2022-06-18] MEDS ORDERED: LISI20TA30 PO (12:51)
[2022-06-18] MEDS ORDERED: AMOX-423 PO (12:52)
--- NOTE | 2022-06-18 13:10 | NUR ---
Dr Collins at the bedside, obtained order to d/c pt home. Dr Collins answered all questions and concerns of pt and family present at the bedside. Reviewed d/c instructions with pt and pt verbalized understanding. Provided pt with prescriptions (coreg, lisinopril, augmentin and azithromycin), copies placed in chart. D/c iv site, all belongings given to pt. escorted out via wheelchair. Also ALLEGRA SANCHEZ at the bedside and aware of discharge. Tele box returned to tele monitor.
[2022-06-18] MEDS ORDERED: CARVEDILOL 12.5 MG TABLET (COREG) PO SCH (21:00)
== END 2022-06-18 13:10 | disposition home or self-care (01) | DRG 561 ==
LOC: SED 09:33 → SMU 14:23 → STU 06-16 11:02
PROVIDERS: ADMIT Specialist; ATTEND Specialist
PROC: 30233N1 Transfusion of Nonautologous Red Blood Cells into Peripheral Vein, Percutaneous Approach (ICD-10-PCS; principal; 2022-06-15)
DX: O99.53 Diseases of the respiratory system complicating the puerperium (principal); J96.01 Acute respiratory failure with hypoxia; I50.21 Acute systolic (congestive) heart failure; E41 Nutritional marasmus; I42.8 Other cardiomyopathies; R65.10 Systemic inflammatory response syndrome (SIRS) of non-infectious origin without acute organ dysfunction; I42.9 Cardiomyopathy, unspecified; I11.0 Hypertensive heart disease with heart failure; O99.325 Drug use complicating the puerperium; O90.81 Anemia of the puerperium; O99.43 Diseases of the circulatory system complicating the puerperium; F15.10 Other stimulant abuse, uncomplicated; F12.10 Cannabis abuse, uncomplicated; D64.9 Anemia, unspecified; Z20.822 Contact with and (suspected) exposure to COVID-19; I50.9 Heart failure, unspecified; E44.0 Moderate protein-calorie malnutrition
CPT/HCPCS: 36415; 71045; 71275; 76376; 80053; 80307; 81000; 83051; 83880; 84484; 85007; 85014; 85025; 85027; 85048; 85049-TC; 86886; 86900; 86901; 86920; 87081; 93005; 93306; 96361; 96374; 96375; 96376; 99285; G0378; J0290; J0360; J1940; J2060; J3010; J3490; P9021; Q9967